=== PATIENT | male | born 1935 | race Caucasian/White ===

== ENCOUNTER 2020-01-10 14:23 | Emergency (ER) | payer MEDICARE, OTHER, SELFPAY ==
[2020-01-10 14:31] VITALS: BP 152/90; PULSE 85; RESP 16; TEMP 36.7; O2SAT 98
--- NOTE | 2020-01-10 14:32 | DI.CT.S_ITS ---
PROCEDURE: CT CERVICAL SPINE WO CON INDICATIONS: fall on coumadin, right facial abrasions TECHNIQUE: Noncontrast 3 mm thick sections acquired from the skull base to the T4 level. Sagittal and coronal reformats were then constructed. For radiation dose reduction, the following was used: automated exposure control, adjustment of mA and/or kV according to patient size. COMPARISON: [facility], CT, CHEST/ABD/PEL WITH CONTRAST, 07/07/2017, 18:37. FINDINGS: Image quality: Excellent. Bones: No fractures or dislocations. Visualized superior ribs are intact. Sclerotic focus in the left lateral second rib is unchanged since 2017. Mild height loss of the T3 vertebral body, unchanged. Extensive degenerative change in the cervical spine with ankylosis of C5-C7. Soft tissues: Mild mucosal thickening in the left maxillary sinus. Prevertebral soft tissues are normal in thickness. No paravertebral hematomas. No apical pneumothoraces. IMPRESSION: No acute osseous abnormality. Dictated by: Star Cline M.D. on 01/10/2020 at 15:01 Approved by: Star Cline M.D. on 01/10/2020 at 15:04
--- NOTE | 2020-01-10 14:32 | DI.CT.S_ITS ---
PROCEDURE: CT HEAD/BRAIN WO CON INDICATIONS: fall on coumadin, right facial abrasians TECHNIQUE: Noncontrast 4.5 mm thick angled axial sections acquired from the foramen magnum to the vertex, with coronal and sagittal reformats. For radiation dose reduction, the following was used: automated exposure control, adjustment of mA and/or kV according to patient size. COMPARISON: [facility], MR, BRAIN, 01/06/2019, 11:22. [facility], CT, CT CERVICAL SPINE WO CON, 01/10/2020, 14:31. [facility], CT, HEAD WITHOUT CONTRAST, 07/07/2017, 10:47. FINDINGS: Image quality: Excellent. CSF spaces: Basal cisterns are patent. No extra-axial fluid collections. Ventricles are normal in size and shape. Brain: No midline shift. No intracranial masses or hemorrhage. Hypodensity in the right cerebral hemisphere in the region of prior resected tumor appear similar to the flair signal hyperintensity on the MRI 01/06/2019. Mild periventricular hypodensity consistent with chronic microvascular ischemic disease. Distal intracranial ICA and vertebral artery atherosclerotic calcifications. Skull and face: Prior right temporal craniotomy. Calvarium and visualized facial bones are intact, without suspicious lesions. Sinuses: Visualized sinuses and mastoids are clear. IMPRESSION: 1. No acute intracranial hemorrhage. 2. Moderate right cerebral hemisphere hypodensity which appears similar to brain MRI 01/06/2019. This is most likely due to prior tumor treatment. -If new focal neurologic deficit or suspicion for recurrent disease recommend brain MRI with IV contrast. 3. Chronic microvascular ischemic disease. Dictated by: Star Cline M.D. on 01/10/2020 at 14:52 Approved by: Star Cline M.D. on 01/10/2020 at 15:01
--- NOTE | 2020-01-10 14:36 | ED_ITS ---
HPI - Fall General Chief Complaint: Trauma Stated Complaint: Fell And Hit Head/Blood Thinners Time Seen by Provider: 01/10/20 14:36 Source: patient Mode of arrival: Ambulatory History of Present Illness HPI Narrative: 84-year-old gentleman with a history of brain cancer, DVT on Coumadin, BPH, reflux and hypertension presents to the emergency room after a mechanical fall. He caught his toe on a curb fell forward has a small abrasion on the back of his right hand and abrasions to his forehead and nose. Denies syncope, chest pain or loss of consciousness. Is not complaining of neck pain but does have distracting injury so nexus criteria are not met. He is complaining of no other musculoskeletal pain. Reports no recent fever, cough, cold, chill, shortness of breath, diaphoresis, chest pain, vomiting, diarrhea Related Data Home Medications Medication Instructions Recorded Confirmed OMEPRAZOLE 20 mg PO QDAY #0 03/23/13 metoprolol tartrate 12.5 mg PO BID #0 03/23/13 01/10/20 ranitidine HCl 150 mg PO BID #0 07/06/17 sertraline 12.5 mg PO QDAY #0 07/06/17 finasteride 5 mg PO DAILY 01/10/20 01/10/20 hydrochlorothiazide 25 mg PO DAILY 01/10/20 01/10/20 potassium chloride 10 meq PO DAILY 01/10/20 01/10/20 terazosin 5 mg PO DAILY 01/10/20 01/10/20 warfarin 7.5 - 15 mg PO DAILY 01/10/20 01/10/20 warfarin [Jantoven] 5 - 10 mg PO DAILY 01/10/20 01/10/20 Allergies Allergy/AdvReac Type Severity Reaction Status Date / Time No Known Drug Allergies Allergy Verified 01/10/20 14:40 Review of Systems Review of Systems Narrative: All systems reviewed and are unremarkable except as noted in HPI and below Patient History Medical History Acid reflux (Acute) Anticoagulated (Acute) BPH (benign prostatic hyperplasia) (Acute) Brain cancer (Acute) Deep vein thrombophlebitis of leg (Acute) Hypertension (Acute) 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 Able to give a complete and coherent history. Well-nourished well-developed HEENT: Minor abrasion to the right side of his forehead as well as the bridge of his nose Moist mucous membranes, normal sclera with reactive pupils, Neck: No JVD, supple Respiratory: Lungs are clear to auscultation, no wheezing no rales no rhonchi. Full and symmetrical air movement Cardiac: Regular rate and rhythm no murmurs no bruits Abdomen: Soft nontender good bowel tones, no flank pain Skin: Warm and dry, no rashes Neurologic: Grossly neurologically intact with no obvious asymmetries or abnormalities Extremities: Minor abrasions to the right hand knuckles, well perfused Psych: Cooperative, appropriate insight and affect Initial Vital Signs Initial Vital Signs: Vital Signs Temperature 98.0 F 01/10/20 14:31 Pulse Rate 85 01/10/20 14:31 Respiratory Rate 16 01/10/20 14:31 Blood Pressure 152/90 H 01/10/20 14:31 Pulse Oximetry 98 01/10/20 14:31 Course Orders Ordered: ED Orders 01/10/20 14:32 CT cervical spine wo con Stat CT head/brain wo con Stat 01/10/20 14:51 CBC Auto Diff [Complete Blood Count AUTO DIFF] Stat Partial Thromboplastin Time Stat Prothrombin Time INR Stat Discontinued Medications Bacitracin (Bacitracin) 1 applic TOP NOW ONE Stop: 01/10/20 14:58 Vital Signs Vital signs: Vital Signs - 8 hr 01/10/20 14:31 Temperature 98.0 F Pulse Rate 85 Respiratory Rate 16 Blood Pressure 152/90 H Pulse Oximetry 98 MDM - Fall Medical Records Attestation: I reviewed the patient's medical records. Lab Data Attestation: I reviewed the patient's lab results. Result diagrams: 01/10/20 14:51 Labs: Lab Results 01/10/20 01/10/20 Range/Units 14:51 14:51 WBC 5.4 (4.5-11.0) X10^3/uL RBC 4.73 (4.5-5.9) X10^6/uL Hgb 13.9 (13.5-17.5) g/dL Hct 40.7 L (41-53) % MCV 86.2 (80-100) fL MCH 29.5 (26-34) PG MCHC 34.2 (30-36) % RDW 14.7 (11.6-14.8) % Plt Count 117 L (150-400) X10^3/uL Neut % (Auto) 75.6 H (50-75) % Lymph % (Auto) 16.9 L (25-40) % Winkler % (Auto) 6.1 (3-14) % Eos % (Auto) 1.0 L (2-4) % Baso % (Auto) 0.4 (0-2) % Neut # (Auto) 4100 (6591-3719) /uL Lymph # (Auto) 900 L (5567-4676) /uL Winkler # (Auto) 300 (0-900) /uL Eos # (Auto) 100 (0-450) /uL Baso # (Auto) 0 (0-100) /uL PT 29.4 H (10.1-12.7) SECONDS INR 2.6 H (0.9-1.3) APTT 36 (26.4-36.2) SECONDS Imaging Data CT scan - head: Radiologist's Impression: IMPRESSION: 1. No acute intracranial hemorrhage. 2. Moderate right cerebral hemisphere hypodensity which appears similar to brain MRI 01/06/2019. This is most likely due to prior tumor treatment. -If new focal neurologic deficit or suspicion for recurrent disease recommend brain MRI with IV contrast. 3. Chronic microvascular ischemic disease. Dictated by: Star Cline M.D. on 01/10/2020 at 14:52 CT - cervical spine: Attestation: I personally reviewed and interpreted this imaging study as follows: Radiologist's Impression: IMPRESSION: No acute osseous abnormality. Dictated by: Star Cline M.D. on 01/10/2020 at 15:01 [facility] Narrative Medical decision making narrative: INR of 2.6, no intracranial bleed no cervical injury no bony point tenderness to suggest additional imaging is required for upper extremities. At this point exam is consistent with a mechanical fall with minor abrasions to the face and hand without other injury or need for further workup. Discharge Plan Departure Patient Disposition: Home Clinical Impression: Fall Qualifiers: Encounter type: initial encounter Qualified Code(s): W19.XXXA - Unspecified fall, initial encounter Abrasion of face Qualifiers: Encounter type: initial encounter Qualified Code(s): S00.81XA - Abrasion of oth er part of head, initial encounter Abrasion hand Qualifiers: Encounter type: initial encounter Laterality: right Qualified Code(s): S60.511A - Abrasion of right hand, initial encounter Activity Restrictions/Additional Instructions: Thank you for coming in today Your CT scan of your head and your cervical spine are both nice and reassuring. There is no bleeding inside your skull or your brain and you did not injure the bones in your neck. The abrasions over your face and your hand will heal nicely over the next couple of days. I would expect to find more aches and pains in your knees hips and shoulders from today's fall over the next couple of days. It is okay to take 2 extra-strength Tylenol every 6 hours if the pain is bothering you. It sounds like you are taking excellent care to try and avoid falls and using appropriate techniques to stabilize herself. Please continue to do this. Falling is a significant risk for other injuries. I hope you feel better shortly Prescriptions: No Action metoprolol tartrate 25 MG tablet 12.5 mg PO BID Qty: 0 RF: 0 OMEPRAZOLE 20 mg PO QDAY Qty: 0 RF: 0 sertraline 25 MG tablet 12.5 mg PO QDAY Qty: 0 RF: 0 ranitidine HCl 150 MG tablet 150 mg PO BID Qty: 0 RF: 0 terazosin 5 mg capsule 5 mg PO DAILY RF: 0 potassium chloride 10 mEq tablet extended release 10 meq PO DAILY RF: 0 warfarin [Jantoven] 5 mg tablet 5 - 10 mg PO DAILY RF: 0 hydrochlorothiazide 25 mg tablet 25 mg PO DAILY RF: 0 finasteride 5 mg tablet 5 mg PO DAILY RF: 0 warfarin 7.5 mg tablet 7.5 - 15 mg PO DAILY RF: 0
[2020-01-10 14:59] LABS: Add Manual Diff / Slide Review NO; Basophils Absolute Auto 0 /uL (0-100); Basophils Percent Auto 0.4 % (0-2); Eosinophils Absolute Auto 100 /uL (0-450); Hematocrit 40.7 % (41-53); Hemoglobin 13.9 g/dL (13.5-17.5); Lymphocytes Absolute Auto 900 /uL (1100-4500); Lymphocytes Percent Auto 16.9 % (25-40); Mean Corpuscular HGB Conc 34.2 % (30-36); Mean Corpuscular Hemoglobin 29.5 PG (26-34); Mean Corpuscular Volume 86.2 fL (80-100); Monocytes Absolute Auto 300 /uL (0-900); Monocytes Percent Auto 6.1 % (3-14); Neutrophils Absolute Auto 4100 /uL (1500-7000); Neutrophils Percent Auto 75.6 % (50-75); Platelet Count 117 X10^3/uL (150-400); Red Blood Cell Count 4.73 X10^6/uL (4.5-5.9); Red Cell Distribution Width 14.7 % (11.6-14.8); White Blood Cell Count 5.4 X10^3/uL (4.5-11.0)
[2020-01-10 15:30] VITALS: BP 134/75; PULSE 68; RESP 18; O2SAT 99
[2020-01-10 15:35] LABS: INR 2.6 (0.9-1.3); PTT Partial Thromboplastin Tim 36 SECONDS (26.4-36.2); Prothrombin Time 29.4 SECONDS (10.1-12.7)
[2020-01-10] MEDS: BACITRACIN OINT 0.9 GM PCKT 1 APPLIC TOP (16:00)
== END 2020-01-10 16:06 | disposition home or self-care (01) ==
PROVIDERS: Emergency Provider Emergency Medicine
DX: S00.81XA Abrasion of other part of head, initial encounter (principal); S60.511A Abrasion of right hand, initial encounter; W19.XXXA Unspecified fall, initial encounter; I10 Essential (primary) hypertension; Z79.01 Long term (current) use of anticoagulants
CPT/HCPCS: 36415; 70450; 72125; 85025; 85610; 85730; 99284

== ENCOUNTER 2020-07-21 09:30 | Emergency (ER) | payer MEDICARE, OTHER, SELFPAY ==
[2020-07-21] VITALS (8 sets, daily range): BP systolic 143–153; BP diastolic 84–94; PULSE 65–85; RESP 16–27; TEMP 36.4; O2SAT 92–100; BMI 24.4
--- NOTE | 2020-07-21 09:28 | ED_ITS ---
HPI - Fall General Chief Complaint: Fall Stated Complaint: Fall, Shoulder & Neck Pain Time Seen by Provider: 07/21/20 09:33 Source: patient and EMS Mode of arrival: EMS Limitations: altered mental status History of Present Illness HPI Narrative: 84-year-old male nonsmoker with history of brain cancer and apparent recent surgery presents by EMS with a chief complaint of a fall and right shoulder pain. He has a very bad historian and it is unclear exactly when he fell. His report of painful complaints seems to be changing. He denies any change in diet or medications. There is report of a recent brain surgery with a revision but is unclear where or when this happened. He denies any neurologic symptoms such as blurred vision, trouble with speech or numbness, weakness or tingling. He complains of right shoulder pain which is worse with motion and improves with rest but denies any tingling in his fingers. He denies any neck pain. Denies any chest pain, shortness of breath, cough nor any nausea, vomit ing or diarrhea. MD complaint: fall Related Data Home Medications Medication Instructions Recorded Confirmed metoprolol tartrate 25 mg PO QAM #0 03/23/13 01/10/20 omeprazole 20 mg PO QAM #0 03/23/13 01/10/20 CoQ-10 200 mg PO DAILY 01/10/20 01/10/20 Prostate Plus 1 tab PO DAILY 01/10/20 01/10/20 azelastine-fluticasone 1 spray INTRANASAL DIRECTED 01/10/20 01/10/20 chondroitin sulfate A sodium 200 mg PO DAILY 01/10/20 01/10/20 ciclopirox 1 applic TOPICAL DIRECTED 01/10/20 01/10/20 coconut oil 1 cap PO DAILY 01/10/20 01/10/20 fiber 3.4 g PO DAILY 01/10/20 01/10/20 finasteride 5 mg PO QAM 01/10/20 01/10/20 glucosamine sulfate [Glucosamine] 500 mg PO DAILY 01/10/20 01/10/20 hydrochlorothiazide 25 mg PO QAM 01/10/20 01/10/20 it-ewk-eayjh acid-lutein [Centrum 1 tab PO DAILY 01/10/20 01/10/20 Silver] ondansetron 8 mg PO Q8H PRN 01/10/20 01/10/20 potassium chloride 10 meq PO QAM 01/10/20 01/10/20 protein 1 ea PO DAILY 01/10/20 01/10/20 sulfamethoxazole-trimethoprim 1 tab PO MOWEFR 01/10/20 01/10/20 terazosin 5 mg PO QPM 01/10/20 01/10/20 warfarin 7.5 mg PO TUFR 01/10/20 01/10/20 warfarin [Jantoven] 5 mg PO SUMOWETHSA 01/10/20 01/10/20 Allergies Allergy/AdvReac Type Severity Reaction Status Date / Time No Known Drug Allergies Allergy Verified 01/10/20 14:40 Review of Systems Review of Systems ROS Unobtainable: Unobtainable due to mental status/LOC Patient History Medical History Acid reflux (Acute) Anticoagulated (Acute) BPH (benign prostatic hyperplasia) (Acute) Brain cancer (Acute) Deep vein thrombophlebitis of leg (Acute) Hypertension (Acute) penitentiary current use of anticoagulant (Acute) alcohol intake frequency: 0-2 drinks per day Substance Use Type: does not use Exam Narrative Exam Narrative: GENERAL: [84] year old patient appears stated age. Chronically ill, confused. GCS 14 (baseline per son) HEAD: Atraumatic. Normocephalic. EYES: Pupils equal round and reactive. Extraocular motions intact. No scleral icterus. No injection or drainage. ENT: Dry mucous membranes. Nose without bleeding, purulent drainage. Throat without erythema, tonsillar hypertrophy or exudate. Airway patent. NECK: Trachea midline. Midline tenderness CARDIOVASCULAR: Regular rate and rhythm without murmurs, gallops, or rubs. RESPIRATORY: Clear to auscultation. Breath sounds equal bilaterally. No wheezes, rales, or rhonchi. GASTROINTESTINAL: Abdomen soft, non-tender, nondistended. EXTREMITIES: Right posterior shoulder pain with palpation and range of motion. No obvious deformity. Closed, neurovascularly intact. BACK: Nontender without deformity or crepitance. No flank tenderness. NEURO: Awake, pleasantly confused SKIN: No rash or erythema of visible areas, dry poor turgor Initial Vital Signs Initial Vital Signs: Vital Signs Temperature 97.5 F L 07/21/20 09:36 Pulse Rate 65 07/21/20 09:36 Respiratory Rate 16 07/21/20 09:36 Blood Pressure 143/94 H 07/21/20 09:36 Pulse Oximetry 97 07/21/20 09:36 Scores GCS Krishna coma scale eye opening: Spontaneous Krishna coma scale verbal response: Confused Krishna coma scale motor response: Obey commands [place] coma scale total score: 14 Course Course Course Narrative: 1135 -son is now at the bedside unable to paint much more clear picture. Patient was last seen and evaluated by [facility] for gamma knife procedure about a year ago to remove a known mass, he did have 1 follow-up for subsequent removal of regrowth of this mass. 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 Son states that over the past week or so there has been of rather precipitous decline and he has become increasingly feet Teed in weak and required increased assistance. He has had 4 falls in the past few days the most recently a day and a half ago when trying to exit the shower. there is some delay initially as the findings on CT were added on and contact by radiologist just occured 1120. Images pushed, transfer process initiated. Patient is on KRider and will need ALS for transfer for cardiac monitoring and drips hanging patient and son (Michael Mckeon) understand and agree with the plan Orders Ordered: ED Orders 07/21/20 09:28 CT cervical spine wo con Stat CT chest abd pel w con Stat CT head/brain wo con Stat 07/21/20 09:34 Basic Metabolic Panel Stat Complete Blood Count AUTO DIFF Stat Prothrombin Time INR Stat Troponin & CK Cardiac Panel Stat 07/21/20 10:36 Urinalysis and Microscopic Stat Potassium Chloride 40 meq/ (Sodium Chloride) 520 mls @ 130 mls/hr IV NOW ONE Stop: 07/21/20 13:57 Last Admin: 07/21/20 10:40 Dose: 130 mls/hr Documented by: NOEMI Cosigned by: HOMAR Discontinued Medications Sodium Chloride (Normal Saline 0.9%) 500 mls @ 1,000 mls/hr IV BOLUS ONE Stop: 07/21/20 09:57 Last Infusion: 07/21/20 12:09 Dose: 0 mls/hr Documented by: Admin: 07/21/20 10:39 Dose: 1,000 mls/hr Documented by: NOEMI Consultations Consultation #1: Dr. Winston ([facility]) happy to accept. Vital Signs Vital signs: Vital Signs - 8 hr 07/21/20 09:36 07/21/20 10:40 07/21/20 11:00 Temperature 97.5 F L Pulse Rate 65 78 75 Respiratory Rate 16 22 17 Blood Pressure 143/94 H Pulse Oximetry 97 95 92 07/21/20 11:14 07/21/20 11:30 Temperature Pulse Rate 81 76 Respiratory Rate 22 26 H Blood Pressure 153/84 H Pulse Oximetry 92 99 MDM - Fall Lab Data Result diagrams: 07/21/20 09:34 07/21/20 09:34 Labs: Lab Results 07/21/20 07/21/20 07/21/20 Range/Units 09:34 09:34 09:34 WBC 6.8 (4.5-11.0) X10^3/uL RBC 4.78 (4.5-5.9) X10^6/uL Hgb 15.0 (13.5-17.5) g/dL Hct 43.5 (41-53) % MCV 91.1 (80-100) fL MCH 31.3 (26-34) PG MCHC 34.4 (30-36) % RDW 13.9 (11.6-14.8) % Plt Count 117 L (150-400) X10^3/uL Neut % (Auto) 79.9 H (50-75) % Lymph % (Auto) 12.7 L (25-40) % [place] % (Auto) 6.9 (3-14) % Eos % (Auto) 0.2 L (2-4) % Baso % (Auto) 0.3 (0-2) % Neut # (Auto) 5400 (1621-6461) /uL Lymph # (Auto) 900 L (9449-8053) /uL [place] # (Auto) 500 (0-900) /uL Eos # (Auto) 0 (0-450) /uL Baso # (Auto) 0 (0-100) /uL PT 13.4 H (10.1-12.7) SECONDS INR 1.2 (0.9-1.3) Sodium 141 (137-145) mmol/L Potassium 3.1 L (3.4-5.1) mmol/L Chloride 98 (98-107) mmol/L Carbon Dioxide 38 H (22-32) mmol/L BUN 23 H (9-20) mg/dL Creatinine 0.69 (0.66-1.25) mg/dL Estimated GFR > 60.0 (>60) mL/min BUN/Creatinine Ratio 33.3 H (6-22) Glucose 104 (80-110) mg/dL Calcium 8.8 (8.4-10.2) mg/dL Total Creatine Kinase 756 H (55-170) U/L CK-MB (CK-2) 6.82 H (<2.37) ng/mL CK-MB (CK-2) Rel Index 0.9 L (1.5-5.0) % Troponin I < 0.012 (0.01-0.034) ng/mL Urine Color Urine Appearance Urine pH (4.5-8.0) Ur Specific [place] (1.000-1.035) Urine Protein (Negative) Urine Glucose (UA) (Negative) g/dL Urine Ketones (NEGATIVE) Urine Occult Blood (Negative) Urine Nitrate (Negative) Urine Bilirubin (NEGATIVE) Urine Urobilinogen (0.2) E.U./dL Ur Leukocyte Esterase (NEGATIVE) Urine RBC (0-5/HPF) Urine WBC (0-5/HPF) Ur Squamous Epith Cells (0-5/HPF) Urine Bacteria (None) Ur Culture Indicated? 07/21/20 Range/Units 10:36 WBC (4.5-11.0) X10^3/uL RBC (4.5-5.9) X10^6/uL Hgb (13.5-17.5) g/dL Hct (41-53) % MCV (80-100) fL MCH (26-34) PG MCHC (30-36) % RDW (11.6-14.8) % Plt Count (150-400) X10^3/uL Neut % (Auto) (50-75) % Lymph % (Auto) (25-40) % [place] % (Auto) (3-14) % Eos % (Auto) (2-4) % Baso % (Auto) (0-2) % Neut # (Auto) (7127-5187) /uL Lymph # (Auto) (2623-8098) /uL [place] # (Auto) (0-900) /uL Eos # (Auto) (0-450) /uL Baso # (Auto) (0-100) /uL PT (10.1-12.7) SECONDS INR (0.9-1.3) Sodium (137-145) mmol/L Potassium (3.4-5.1) mmol/L Chloride (98-107) mmol/L Carbon Dioxide (22-32) mmol/L BUN (9-20) mg/dL Creatinine (0.66-1.25) mg/dL Estimated GFR (>60) mL/min BUN/Creatinine Ratio (6-22) Glucose (80-110) mg/dL Calcium (8.4-10.2) mg/dL Total Creatine Kinase (55-170) U/L CK-MB (CK-2) (<2.37) ng/mL CK-MB (CK-2) Rel Index (1.5-5.0) % Troponin I (0.01-0.034) ng/mL Urine Color Yellow Urine Appearance Clear Urine pH 5.5 (4.5-8.0) Ur Specific [place] 1.025 (1.000-1.035) Urine Protein 1+ H (Negative) Urine Glucose (UA) Negative (Negative) g/dL Urine Ketones Trace H (NEGATIVE) Urine Occult Blood Trace-lysed (Negative) Urine Nitrate Negative (Negative) Urine Bilirubin Negative (NEGATIVE) Urine Urobilinogen 0.2 (0.2) E.U./dL Ur Leukocyte Esterase Negative (NEGATIVE) Urine RBC 1-5/hpf (0-5/HPF) Urine WBC 0-1/hpf (0-5/HPF) Ur Squamous Epith Cells 1-5 /hpf (0-5/HPF) Urine Bacteria None seen (None) Ur Culture Indicated? Cult not indicated Imaging Data CT - cervical spine: Radiologist's Impression: Chart Viewer Diagnostics DATE TYPE STATUS REF RANGE/AUTHOR Hx 07/21/20 09:28 Glen Johnson 07/21/20 09:28 Glen Johnson 07/21/20 09:28 Glen Johnson 01/10/20 14:32 [facility] 01/10/20 14:32 Call,Davie Barrios 84, M0 1935 REG ER, Main ED R10 182.88cm 81.647kg BMI: 24.4kg/m? Fall Search Chart No Data to Display NF - Not included in interaction checking ONSET Today 11:30 Davie Mckeon 84 M [address] [address] [address] Scan Report Addendum Patient: Davie Mckeon CMR#: [id number] : 5Acct:[id number] Age/Sex: 84 / MDate of Service: 07/21/20 Loc: ED Accession Number: [id number] Procedure: CT cervical spine wo con Ordering Provider: Rubne Monreal D.O. ADDENDUM This report includes an Addendum and supersedes previous reports for this exam. PROCEDURE: CT CERVICAL SPINE WO CON INDICATIONS: fall a few days ago, self splinting TECHNIQUE: Noncontrast 3 mm thick sections acquired from the skull base to the T4 level. Sagittal and coronal reformats were then constructed. For radiation dose reduction, the following was used: automated exposure control, adjustment of mA and/or kV according to patient size. COMPARISON: [facility], CT, CT CERVICAL SPINE WO CON, 01/10/2020, 14:31. FINDINGS: Image quality: Excellent. Bones: No fractures or dislocations. Visualized superior ribs are intact. Stable sclerotic focus, posterior lateral left 2nd rib. Severe cervical spondylosis. Findings include severe canal stenosis at C3-C4 and C5-C6. There is multilevel severe bony foraminal narrowing. Soft tissues: Prevertebral soft tissues are normal in thickness. No paravertebral hematomas. No apical pneumothoraces. IMPRESSION: 1. No evidence of acute cervical fracture or dislocation. 2. Severe cervical spondylitic change with severe canal stenosis at C3-C4 and C5-C6, and multilevel severe bony foraminal narrowing. Dictated by: Glen Johnson M.D. on 07/21/2020 at 9:59 Approved by: Glen Johnson M.D. on 07/21/2020 at 10:02 ADDENDUM: Immediately after the dictation was made, a non stable C6 fracture involving the anterior column and middle column was noted involving the C6 vertebra near the superior endplate, with anterior distraction. This was immediately dictated and discussed with Dr. Orchard, at 10:10 hours [place] Daylight time, on 07.21.20. For some reason, the addended dictation did not appropriately save. ADDENDED IMPRESSION: 1. Unstable C6 fracture involving the anterior and middle columns, with anterior distraction. 2. Severe cervical spondylosis. 3. Findings discussed with referring ER physician as described above. Dictated by: Glen Johnson M.D. on 07/21/2020 at 10:53 Approved by: Glen Johnson M.D. on 07/21/2020 at 10:58 Addendum Dictated By:Glen Johnson MD Addendum Signed By: Addendum Cosigned By: DD/ /28/1202 TD/TT: 07/21/2010/28/1202 PROCEDURE: CT CERVICAL SPINE WO CON INDICATIONS: fall a few days ago, self splinting TECHNIQUE: Noncontrast 3 mm thick sections acquired from the skull base to the T4 level. Sagittal and coronal reformats were then constructed. For radiation dose reduction, the following was used: automated exposure control, adjustment of mA and/or kV according to patient size. COMPARISON: [facility], CT, CT CERVICAL SPINE WO CON, 01/10/2020, 14:31. FINDINGS: Image quality: Excellent. Bones: No fractures or dislocations. Visualized superior ribs are intact. S table sclerotic focus, posterior lateral left 2nd rib. Severe cervical spondylosis. Findings include severe canal stenosis at C3-C4 and C5-C6. There is multilevel severe bony foraminal narrowing. Soft tissues: Prevertebral soft tissues are normal in thickness. No paravertebral hematomas. No apical pneumothoraces. IMPRESSION: 1. No evidence of acute cervical fracture or dislocation. 2. Severe cervical spondylitic change with severe canal stenosis at C3-C4 and C5-C6, and multilevel severe bony foraminal narrowing. Dictated by: Glen Johnson M.D. on 07/21/2020 at 9:59 Approved by: Glen Johnson M.D. on 07/21/2020 at 10:02 CT scan - head: Radiologist's Impression: Chart Viewer Diagnostics DATE TYPE STATUS REF RANGE/AUTHOR Hx 07/21/20 09:28 Glen Johnson 07/21/20 09:28 Glen Johnson 07/21/20 09:28 Glen Johnson 01/10/20 14:32 [facility] 01/10/20 14:32 Call,Davie Barrios 84, M0 1935 REG ER, Main ED R10 182.88cm 81.647kg BMI: 24.4kg/m? Fall Search Chart No Data to Display NF - Not included in interaction checking ONSET Today 11:30 Davie Mckeon 84 M 1935 [place] [address] CT Scan Report Signed Patient: Davie Mckeon CMR#: [id number] : 5Acct:[id number] Age/Sex: 84 / MDate of Service: 07/21/20 Loc: ED Accession Number: [id number] Procedure: CT head/brain wo con Ordering Provider: Ruben Monreal D.O. PROCEDURE: CT HEAD/BRAIN WO CON INDICATIONS: fall with recent brain surgery TECHNIQUE: Noncontrast 4.5 mm thick angled axial sections acquired from the foramen magnum to the vertex, with coronal and sagittal reformats. For radiation dose reduction, the following was used: automated exposure control, adjustment of mA and/or kV according to patient size. COMPARISON: [facility], MR, MR BRAIN WITH/WITHOUT CONTRAST, 03/03/2020, 9:35. Outside Film, MR, BRAIN, 06/14/2020, 12:42. [facility], CT, CT HEAD/BRAIN WO CON, 01/10/2020, 14:31. FINDINGS: Image quality: Excellent. CSF spaces: Basal cisterns are patent. No extra-axial fluid collections. There is dilatation of the temporal horn of the right lateral ventricle, likely secondary to surgery and treatment. The occipital horn of the right lateral ventricle is deviated anteriorly. Brain: Probable combination vasogenic edema and post radiation change , right temporoparietal occipital region, somewhat progressed compared to the January, CT. A suprasellar mass, which is mildly hyperdense, has developed since the prior CT, identified on the outside MRI dated 06/14/20, measuring approximately 2.2 cm. There is associated vasogenic edema in the deep white matter. No acute hemorrhage. There is cerebral volume loss for age, with resultant ventricular and sulcal prominence. There are periventricular and deep white matter chronic small vessel ischemic changes. There is intracranial internal carotid artery atherosclerosis. Skull and face: Remote right temporal craniotomy. Calvarium and visualized facial bones appear intact, without suspicious lesions. Sinuses: Visualized sinuses and mastoids are clear. IMPRESSION: 1. No evidence of acute stroke or hemorrhage. 2. Interval progression of deep white matter change in the right cerebral he misphere, involving the temporal, parietal, and occipital region, likely representing a combination of vasogenic edema and post treatment change. 3. 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 Dictated by: Glen Johnson M.D. on 07/21/2020 at 9:49 Approved by: Glen Johnson M.D. on 07/21/2020 at 9:58 CT scan - chest: Radiologist's Impression: [place] [address] CT Scan Report Signed Patient: Davie Mckeon CMR#: [id number] : 5Acct:[id number] Age/Sex: 84 / MDate of Service: 07/21/20 Loc: ED Accession Number: [id number] Procedure: CT chest abd pel w con Ordering Provider: Ruben Monreal D.O. PROCEDURE: CT CHEST ABD PEL W CON INDICATIONS: fall with severe back, shoulder pain TECHNIQUE: After the administration of intravenous contrast, 5 mm thick sections acquired from the lung apices to the symphysis. 2.5 mm thick coronal and sagittal reformats were acquired. Additional 7 mm thick coronal maximum intensity projection (MIP) reformats acquired through the lungs. Optional 10-minute delayed imaging may be performed from the kidneys to the bladder. For radiation dose reduction, the following was used: automated exposure control, adjustment of mA and/or kV according to patient size. COMPARISON: [facility], CT, CHEST/ABD/PEL WITH CONTRAST, 07/07/2017, 18:37. FINDINGS: Image quality: Excellent. CHEST: Lungs: No pulmonary contusions or lacerations. No acute airspace opacities. No pneumothorax or hemothorax. Central and peripheral airways appear patent and normal in caliber. Mediastinum: No mediastinal hematomas. Heart size is normal. No pericardial effusion. Thoracic aorta and pulmonary arteries demonstrate normal size and enhancement. No mediastinal or hilar adenopathy. Probable diffuse esophageal wall thickening, not significantly changed. No hiatal hernia. Chest wall: No rib fractures. No subcutaneous emphysema. No axillary or supraclavicular adenopathy. Thyroid gland is contains a sub cm right lobe thyroid nodule. ABDOMEN: Solid organs: Liver is normal in size and enhancement, without lacerations. Gallbladder is unremarkable. Biliary system is non-dilated. Pancreas enhances normally, w ithout transection. Spleen is normal in size and enhancement, without lacerations. No adrenal hematomas. Both kidneys enhance normally, without hydronephrosis or lacerations. Large exophytic left lower pole renal cyst measuring 9.3 cm. Peritoneum and bowel: No free fluid or air. Unenhanced bowel loops demonstrate normal wall thickness and caliber. Sigmoid diverticulosis without evidence of diverticulitis. Nodes and vessels: No retroperitoneal or mesenteric adenopathy. Aorta and infe rior vena cava are normal in size and enhancement. Atherosclerotic plaque involving the infrarenal abdominal aorta. Miscellaneous: No ventral hernias. Interval placement of an inferior vena cava filter. PELVIS: Genitourinary: Bladder wall thickness is normal. Miscellaneous: No inguinal hernias or adenopathy. Bones: Pelvic ring and hip joints appear intact. Distraction fracture through the superior aspect of the C6 vertebral body, an unstable fracture. Mild chronic compressions of T2 and T3 superior endplates. Multilevel bony ankylosis involving the thoracic spine. No acute thoracic or lumbar fracture is noted. IMPRESSION: 1. Unstable C6 fracture. 2. No evidence of significant sequelae of acute trauma in the chest, abdomen, and pelvis. 3. No evidence of malignancy in the chest, abdomen, and pelvis. 4. Probable chronic esophageal wall thickening. Comment: Dr. Monreal is aware of the cervical fracture. Dictated by: Glen Johnson M.D. on 07/21/2020 at 10:18 Approved by: Glen Johnson M.D. on 07/21/2020 at 10:31 Critical Care Time Critical Care Time Critical Care Time: Yes Total Critical Care Time: 30 Attestation: The high probability of a clinically significant, sudden or life threatening de terioration of the [NV] system(s) required my full and direct attention, intervention and personal management. The aggregate critical care time was [30] minutes. This time is in addition to time spent performing reported procedures but includes the following: [x] Data Review and interpretation [x] Patient assessment and monitoring of vital signs [x] Documentation [x] Medication orders and management Discharge Plan Departure Patient Disposition: [facility] Clinical Impression: Acute dehydration, Acute hypokalemia Closed C6 fracture Qualifiers: Encounter type: initial encounter Fracture morphology: other fracture Fracture alignment: displaced Qualified Code(s): S12.590A - Other displaced fracture of sixth cervical vertebra, initial encounter for closed fracture Fall Qualifiers: Encounter type: initial encounter Qualified Code(s): W19.XXXA - Unspecified fall, initial encounter Prescriptions: No Action metoprolol tartrate 25 MG tablet 25 mg PO QAM Qty: 0 RF: 0 omeprazole 40 mg Capsule,Delayed Release(Dr/Ec) 20 mg PO QAM Qty: 0 RF: 0 terazosin 5 mg capsule 5 mg PO QPM RF: 0 potassium chloride 10 mEq tablet extended release 10 meq PO QAM RF: 0 warfarin [Jantoven] 5 mg tablet 5 mg PO SUMOWETHSA RF: 0 hydrochlorothiazide 25 mg tablet 25 mg PO QAM RF: 0 finasteride 5 mg tablet 5 mg PO QAM RF: 0 warfarin 7.5 mg tablet 7.5 mg PO TUFR RF: 0 sulfamethoxazole-trimethoprim 400-80 mg Tablet 1 tab PO MOWEFR RF: 0 glucosamine sulfate [Glucosamine] 500 mg Tablet 500 mg PO DAILY RF: 0 ondansetron 8 mg Tablet,Disintegrating 8 mg PO Q8H PRN (Reason: Nausea) RF: 0 ciclopirox 8 % solution 1 applic TOPICAL DIRECTED RF: 0 protein Powder 1 ea PO DAILY RF: 0 fiber Powder 3.4 g PO DAILY RF: 0 Centrum Silver 400-250 mcg Tablet,Chewable 1 tab PO DAILY RF: 0 azelastine-fluticasone 137-50 mcg/spray [place],Non-Aerosol 1 spray INTRANASAL DIRECTED RF: 0 CoQ-10 200 mg 200 mg PO DAILY RF: 0 Prostate Plus 1 tab PO DAILY RF: 0 chondroitin sulfate A sodium 200 mg 200 mg PO DAILY RF: 0 coconut oil 1 cap PO DAILY RF: 0
[2020-07-21 09:41] LABS: Add Manual Diff / Slide Review NO; Basophils Absolute Auto 0 /uL (0-100); Basophils Percent Auto 0.3 % (0-2); Eosinophils Absolute Auto 0 /uL (0-450); Eosinophils Percent Auto 0.2 % (2-4); Hematocrit 43.5 % (41-53); Lymphocytes Absolute Auto 900 /uL (1100-4500); Lymphocytes Percent Auto 12.7 % (25-40); Mean Corpuscular HGB Conc 34.4 % (30-36); Mean Corpuscular Hemoglobin 31.3 PG (26-34); Mean Corpuscular Volume 91.1 fL (80-100); Monocytes Absolute Auto 500 /uL (0-900); Monocytes Percent Auto 6.9 % (3-14); Neutrophils Absolute Auto 5400 /uL (1500-7000); Neutrophils Percent Auto 79.9 % (50-75); Platelet Count 117 X10^3/uL (150-400); Red Blood Cell Count 4.78 X10^6/uL (4.5-5.9); Red Cell Distribution Width 13.9 % (11.6-14.8); White Blood Cell Count 6.8 X10^3/uL (4.5-11.0)
[2020-07-21 09:48] LABS: INR 1.2 (0.9-1.3); Prothrombin Time 13.4 SECONDS (10.1-12.7)
[2020-07-21 09:52] LABS: BUN Creatinine Ratio 33.3 (6-22); Blood Urea Nitrogen 23 mg/dL (9-20); Calcium 8.8 mg/dL (8.4-10.2); Carbon Dioxide 38 mmol/L (22-32); Chloride 98 mmol/L (98-107); Creatine Kinase 756 U/L (55-170); Estimated Glomerular Filt Rate > 60.0 mL/min (>60); Glucose 104 mg/dL (80-110); HEMOLYSIS < 15 (0-50); Potassium 3.1 mmol/L (3.4-5.1); Sodium 141 mmol/L (137-145)
[2020-07-21 10:04] LABS: Troponin I < 0.012 ng/mL (0.01-0.034)
[2020-07-21 10:07] LABS: CKMB % Relative Index 0.9 % (1.5-5.0); Creatine Kinase MB 6.82 ng/mL (<2.37)
[2020-07-21] MEDS: SODIUM CHLORIDE 0.9% 500 ML 1000 ML IV (10:39)
[2020-07-21] MEDS: POTASSIUM CHLORIDE 40 MEQ in SODIUM CHLORIDE 0.9% 500 ML 130 ML IV (10:40)
[2020-07-21 10:46] LABS: Appearance Urine UA CLEAR; Bacteria Urine None Seen; Bilirubin Urine UA NEGATIVE (NEGATIVE); Color Urine UA YELLOW; Glucose Urine UA NEGATIVE (Negative); Ketones Urine UA TRACE (NEGATIVE); Leukocyte Esterase Urine UA NEGATIVE (NEGATIVE); Nitrite Urine UA NEGATIVE (Negative); Occult Blood Urine UA TRACE-LYSED (Negative); Protein Urine UA 1+ (Negative); Specific Gravity Urine UA 1.025 (1.000-1.035); Urobilinogen Urine UA 0.2 E.U./dL (0.2); pH Urine UA 5.5 (4.5-8.0)
[2020-07-21 11:04] LABS: Culture Indicated Urine Cult Not Indicated; RBC Urine 1-5/HPF (0-5/HPF); Squamous Epithelial Cell Urine 1-5 /HPF (0-5/HPF); WBC Urine 0-1/HPF (0-5/HPF)
== END 2020-07-21 13:10 | disposition short-term general hospital (02) ==
PROVIDERS: Emergency Provider Emergency Medicine
DX: S12.590A Other displaced fracture of sixth cervical vertebra, initial encounter for closed fracture (principal); E86.0 Dehydration; E87.6 Hypokalemia; W19.XXXA Unspecified fall, initial encounter
CPT/HCPCS: 36415; 51701; 70450; 71260; 72125; 74177; 80048; 81001; 82550; 82553; 84484; 85025; 85610; 96365; 96366; 99285; 99291; J3480; Q9967